=== PATIENT | female | born 1985 | race Hispanic/Latino ===

== ENCOUNTER 2020-04-29 21:57 | Emergency (ER) | payer SELFPAY ==
[~2020-04-29] VITALS: Ht 165.1 cm; Wt 64.0 kg
[2020-04-29] MEDS ORDERED: BACITRACIN ZINC 0.9GM TP ONE (22:30)
[2020-04-29] MEDS ORDERED: TYLENOL # 31 EA PO (22:54)
[2020-04-29] MEDS ORDERED: IBUPROFEN IB200 MG PO (22:54)
== END 2020-04-30 00:05 | disposition home or self-care (01) ==
LOC: FSED 22:02
DX: S90.32XA Contusion of left foot, initial encounter (principal); W22.8XXA Striking against or struck by other objects, initial encounter; Y93.B3 Activity, free weights
CPT/HCPCS: 99283